=== PATIENT | female | born 1975 | race Caucasian/White ===

== ENCOUNTER 2016-10-23 22:14 | Emergency (ER) | payer BC ==
[2016-10-23] MEDS ORDERED: ASPIRIN 81 MG CHEWABLE TABLET PO ONE (22:55)
[2016-10-23 23:13] LABS: BASO % 0.2 % (0-6); EOS % 1.9 % (0-6); GRAN % 45.3 % (47-80); HEMATOCRIT 36.2 % (35.0-47.0); HEMOGLOBIN 11.8 gm/dl (11.6-16.0); LYMPH % 47.2 % (16-45); MEAN CELL VOLUME 99.5 fl (81-97); MEAN CORPUSCULAR HEMOGLOBIN 32.4 pg (27-33); MEAN CORPUSCULAR HGB CONC 32.6 g/dl (32-36); MEAN PLATELET VOLUME 9.5 fl (7.4-10.4); MONO % 5.4 % (0-9); PLATELET COUNT 270 K/uL (130-400); RED BLOOD COUNT 3.64 M/uL (3.80-5.40); RED CELL DISTRIBUTION WIDTH 12.9 % (11.5-14.5); URINE APPEARANCE CLEAR; URINE BILIRUBIN NEGATIVE (NEGATIVE); URINE BLOOD NEGATIVE (NEGATIVE); URINE COLOR YELLOW; URINE GLUCOSE (UA) NEGATIVE (NEGATIVE); URINE KETONE NEGATIVE (NEGATIVE); URINE LEUKOCYTE ESTERASE NEGATIVE (NEGATIVE); URINE NITRITE NEGATIVE (NEGATIVE); URINE PROTEIN NEGATIVE (NEGATIVE); URINE UROBILINOGEN 0.2 E.U./dL (0.20 - 1.00); WHITE BLOOD COUNT W/O DIFF 5.2 K/uL (4.2-12.2)
[2016-10-23 23:23] LABS: ANION GAP 5.1 (7-16); BLOOD UREA NITROGEN 11 mg/dL (7-17); CARBON DIOXIDE 27.9 mmol/L (22-30); CREATINE PHOSPHOKINASE 26 U/L (30-135); CREATININE 0.6 mg/dL (0.52-1.04); EST GLOMERULAR FILTRATION RATE > 60 ml/min; GLUCOSE,RANDOM 94 mg/dL (70-110)
[2016-10-23 23:35] LABS: CKMB < 0.2 ug/L (0-6); TROPONIN I < 0.012 ng/mL (0.00-0.034)
--- NOTE | 2016-10-24 00:11 | Emergency Department Record ---
History of Present Illness - General Chief complaint: ENT Stated complaint: CHEST PAIN/ALAS/ UTI Time Seen by Provider: 10/23/16 22:47 Source: Patient Mode of Arrival: Ambulatory Limitations: No limitations - History of Present Illness Initial comments: pt comes in c/o intermittant sharp cp for 2 days and a headache that is frontal w congestion. she also wants to be checked for a uti MD complaint: Other Onset/Timin -: Days(s) Severity: Mild Severity scale (1-10): 5 Consistency: Constant Improves with: None Worsens with: None Associated Symptoms: Cough, Rhinorrhea, Sore throat - Related Data Home Medications Medication Instructions Recorded Confirmed Last Taken Alprazolam [Xanax] 0.25 mg PO Q8H 10/23/16 10/23/16 Unknown Atenolol [Tenormin] 25 mg PO DAILY 10/23/16 10/23/16 Unknown Dicyclomine HCl 20 mg PO QID 10/23/16 10/23/16 Unknown Diphenhydramine HCl [Benadryl] 25 mg PO ASDIR PRN 10/23/16 10/23/16 Unknown Fluticasone Propionate [Flonase] 2 spray EACH NARES DAILY 10/23/16 10/23/16 Unknown Hydrocodone/Acetaminophen 1 tab PO Q4HR 10/23/16 10/23/16 Unknown [Hydrocodone/Acetaminophen 10mg/325mg] Hyoscyamine Sulfate [Levsin] 0.375 mg PO BID 10/23/16 10/23/16 Unknown Omeprazole 20 mg PO DAILY 10/23/16 10/23/16 Unknown Allergies Allergy/AdvReac Type Severity Reaction Status Date / Time tramadol Allergy HIVES Verified 10/23/16 22:22 fentanyl AdvReac VOMITING Verified 10/23/16 22:22 morphine AdvReac VOMITING Verified 10/23/16 22:22 Travel Screening - Travel/Exposure Within Last 30 Days Have you traveled within the last 30 days?: No - Travel/Exposure Within Last Year Have you traveled outside the [place] in the last year?: No - Additonal Travel Details Have you been exposed to anyone with a communicable illness?: No - Travel Symptoms Symptom Screening: None Review of Systems Reviewed: No additional complaints except as noted below Constitutional: Reports: As per HPI. Denies: Chills, Fever, Malaise, Night sweats, Weakness, Weight change Eyes: Reports: As per HPI. Denies: Eye discharge, Eye pain, Photophobia, Vision change ENT: Reports: As per HPI. Denies: Congestion, Dental pain, Ear pain, Epistaxis , Hearing loss, Throat pain Respiratory: Reports: As per HPI. Denies: Cough, Dyspnea, Hemoptysis, Stridor, Wheezes Cardiovascular: Reports: As per HPI. Denies: Arrhythmia, Chest pain, Dyspnea on exertion, Edema, Murmurs, Orthopnea, Palpitations, Paroxysmal nocturnal dyspnea, Rheumatic Fever, Syncope Endocrine: Reports: As per HPI. Denies: Fatigue, Heat or cold intolerance, Polydipsia, Polyuria Gastrointestinal: Reports: As per HPI. Denies: Abdominal pain, Constipation, Diarrhea, Hematemesis, Hematochezia, Melena, Nausea, Vomiting Genitourinary: Reports: As per HPI. Denies: Abnormal menses, Discharge, Dyspareunia, Dysuria, Frequency, Hematuria, Incontinence, Retention, Urgency Musculoskeletal: Reports: As per HPI. Denies: Arthralgia, Back pain, Gout, Joint swelling, Myalgia, Neck pain Skin: Reports: As per HPI. Denies: Bruising, Change in color, Change in hair/ nails, Lesions, Pruritus, Rash Neurological: Reports: As per HPI. Denies: Abnormal gait, Confusion, Headache, Numbness, Paresthesias, Seizure, Tingling, Tremors, Vertigo, Weakness Psychiatric: Reports: As per HPI. Denies: Anxiety, Auditory hallucinations, Depression, Homicidal thoughts, Suicidal thoughts, Visual hallucinations Hematological/Lymphatic: Reports: As per HPI. Denies: Anemia, Blood Clots, Easy bleeding, Easy bruising, Swollen glands Past Medical History - SOCIAL HISTORY Smoking Status: Never smoker Alcohol Use: Rare Drug Use: None - RESPIRATORY Hx Respiratory Disorders: Yes Hx Asthma: Yes - CARDIOVASCULAR Hx Cardio Disorders: Yes Comment:: tachycardia, pots - NEURO Hx Neuro Disorders: No - GI Hx GI Disorders: Yes Hx Irritable Bowel: Yes Comment:: barretts esophagus - ENDOCRINE Hx Endocrine Disorders: Yes Hx Thyroid Disease: Yes (goiter) - MUSCULOSKELETAL Hx Musculoskeletal Disorders: Yes Hx Back Injury: Yes (ruptured disks, djd, scolosis) - PSYCH Hx Psych Problems: Yes Hx Anxiety: Yes - HEMATOLOGY/ONCOLOGY Hx Hematology/Oncology Disorders: No Family Medical History Any Significant Family History?: No Physical Exam - General General Appearance: Alert, Oriented x3, Cooperative, Mild distress - Head Head exam: Normal inspection - Eye Eye exam: Normal appearance, PERRL, EOMI Pupils: Normal accommodation - ENT ENT exam: Normal exam, Mucous membranes moist, Normal external ear exam, Normal orophraynx Ear exam: Normal external inspection. negative: External canal tenderness Nasal Exam: Normal inspection, Sinus tenderness. negative: Discharge Mouth exam: Normal external inspection, Tongue normal Teeth exam: Normal inspection. negative: Dental caries Throat exam: Normal inspection. negative: Tonsillar erythema, Tonsillar exudate - Neck Neck exam: Normal inspection, Full ROM. negative: Tenderness - Respiratory Respiratory exam: Normal lung sounds bilaterally. negative: Respiratory distress - Cardiovascular Cardiovascular Exam: Regular rate, Normal rhythm, Normal heart sounds - GI/Abdominal GI/Abdominal exam: Soft, Normal bowel sounds. negative: Tenderness - Rectal Rectal exam: Deferred - exam: Deferred - Extremities Extremities exam: Normal inspection, Full ROM, Normal capillary refill. negative: Tenderness - Back Back exam: Reports: Normal inspection, Full ROM. Denies: Muscle spasm, Rash noted, Tenderness - Neurological Neurological exam: Alert, CN II-XII intact, Normal gait, Oriented X3 - Psychiatric Psychiatric exam: Normal affect, Normal mood - Skin Skin exam: Dry, Intact, Normal color, Warm Course Vital Signs 10/23/16 22:20 Temperature 98.2 F Pulse Rate [ 71 Pulse Ox Probe] Respiratory 16 Rate Blood Pressure 102/80 [Left Arm] Pulse Ox 99 Medical Decision Making - Management Options MDM Management: Additional Work-up Planned (e.g. ADM/Transfer/OP Study) - Data Complexity MDM Data: Labs Ordered and/or Reviewed, X-Ray Ordered and/or Reviewed, EKG Ordered and/or Reviewed - Lab Data Result diagrams: 10/23/16 23:06 10/23/16 23:06 Lab Results 10/23/16 10/23/16 10/23/16 Range/Units 23:06 23:06 23:06 WBC 5.2 (4.2-12.2) K/uL RBC 3.64 L (3.80-5.40) M/uL Hgb 11.8 (11.6-16.0) gm/dl Hct 36.2 (35.0-47.0) % MCV 99.5 H (81-97) fl MCH 32.4 (27-33) pg MCHC 32.6 (32-36) g/dl RDW 12.9 (11.5-14.5) % Plt Count 270 (130-400) K/uL MPV 9.5 (7.4-10.4) fl Gran % 45.3 L (47-80) % Lymphocytes % 47.2 H (16-45) % Monocytes % 5.4 (0-9) % Eosinophils % 1.9 (0-6) % Basophils % 0.2 (0-6) % D-Dimer 0.22 (0-0.59) mg/L FEU Sodium 139 (136-145) mmol/L Potassium 4.0 (3.5-5.1) mmol/L Chloride 106 (98-107) mmol/L Carbon Dioxide 27.9 (22-30) mmol/L Anion Gap 5.1 L (7-16) BUN 11 (7-17) mg/dL Creatinine 0.6 (0.52-1.04) mg/dL Estimated GFR > 60 ml/min Random Glucose 94 (70-110) mg/dL Calcium 8.8 (8.5-10.1) mg/dL Creatine Kinase 26 L (30-135) U/L CK-MB (CK-2) < 0.2 (0-6) ug/L Troponin I < 0.012 (0.00-0.034) ng/mL Urine Color Urine Appearance Urine pH (5.0-8.0) Ur Specific [place] (1.002-1.030) Urine Protein (NEGATIVE) Urine Glucose (UA) (NEGATIVE) Urine Ketones (NEGATIVE) Urine Blood (NEGATIVE) Urine Nitrite (NEGATIVE) Urine Bilirubin (NEGATIVE) Urine Urobilinogen (0.20 - 1.00) E.U./dL Ur Leukocyte Esterase (NEGATIVE) 10/23/16 Range/Units 23:06 WBC (4.2-12.2) K/uL RBC (3.80-5.40) M/uL Hgb (11.6-16.0) gm/dl Hct (35.0-47.0) % MCV (81-97) fl MCH (27-33) pg MCHC (32-36) g/dl RDW (11.5-14.5) % Plt Count (130-400) K/uL MPV (7.4-10.4) fl Gran % (47-80) % Lymphocytes % (16-45) % Monocytes % (0-9) % Eosinophils % (0-6) % Basophils % (0-6) % D-Dimer (0-0.59) mg/L FEU Sodium (136-145) mmol/L Potassium (3.5-5.1) mmol/L Chloride (98-107) mmol/L Carbon Dioxide (22-30) mmol/L Anion Gap (7-16) BUN (7-17) mg/dL Creatinine (0.52-1.04) mg/dL Estimated GFR ml/min Random Glucose (70-110) mg/dL Calcium (8.5-10.1) mg/dL Creatine Kinase (30-135) U/L CK-MB (CK-2) (0-6) ug/L Troponin I (0.00-0.034) ng/mL Urine Color Yellow Urine Appearance Clear Urine pH 5.5 (5.0-8.0) Ur Specific [place] 1.015 (1.002-1.030) Urine Protein Negative (NEGATIVE) Urine Glucose (UA) Negative (NEGATIVE) Urine Ketones Negative (NEGATIVE) Urine Blood Negative (NEGATIVE) Urine Nitrite Negative (NEGATIVE) Urine Bilirubin Negative (NEGATIVE) Urine Urobilinogen 0.2 (0.20 - 1.00) E.U./dL Ur Leukocyte Esterase Negative (NEGATIVE) - EKG Data -: EKG Interpreted by Me EKG: No Acute Changes - Radiology Data Radiology results: Report reviewed, Image reviewed Disposition Disposition: Discharge Clinical Impression: Headache Qualifiers: Headache type: unspecified Headache chronicity pattern: acute headache Intractability: not intractable Qualified Code(s): R51 - Headache Disposition: Home, Self-Care Return To Work/School Note Provided: Yes Condition: (1) Good Instructions: Acute Headache (ED), Chest Pain (ED) Additional Instructions: follow up with family doctor and with neurologist. return sooner if worse Forms: Patient Portal Access
--- NOTE | 2016-10-26 07:42 | RADIOLOGY REPORT ---
EXAM: CHEST, TWO VIEWS HISTORY: ACUTE CHEST PAIN. TECHNIQUE: Two views of the chest were obtained. Comparison: None. FINDINGS: The lungs are clear. The cardiomediastinal silhouette, diaphragm, and osseous structures are unremarkable for age. IMPRESSION: NEGATIVE CHEST EXAMINATION. JOB NUMBER: [id number] MTDD
--- NOTE | 2016-10-26 07:45 | CT SCAN REPORT ---
EXAM: HEAD CT WITHOUT CONTRAST HISTORY: SHARP HEADACHE NEAR THE VERTEX INTERMITTENT FOR ONE WEEK. TECHNIQUE: Contiguous axial images from the cerebral convexities to the foramen magnum were obtained without contrast. Comparison: None. FINDINGS: The brain volume is normal. No acute intracranial hemorrhage, mass effect, or midline shift. No CT evidence of acute infarct. The ventricles, basal cisterns, and sulci are within normal limits. The osseous structures, soft tissues, and paranasal sinuses are unremarkable. IMPRESSION: NORMAL HEAD CT. JOB NUMBER: [id number] [facility]
== END 2016-10-24 00:44 | disposition home or self-care (01) ==
LOC: ER 22:14
DX: R51 Headache (principal); R05 Cough; R07.89 Other chest pain
CPT/HCPCS: 70450; 71020; 80048; 81003; 82550; 82553; 84484; 85025; 85379; 93005; 93010; 99284

== ENCOUNTER 2016-11-14 22:07 | Emergency (ER) | payer BC ==
--- NOTE | 2016-11-14 22:33 | Emergency Department Record ---
History of Present Illness - General Chief Complaint: Abdominal Pain Stated Complaint: ABD PAIN,NAUSEA Time Seen by Provider: 11/14/16 22:27 Source: Patient Mode of Arrival: Ambulatory Limitations: No limitations - History of Present Illness Initial Comments: 41 yo female presents with abdominal pain. She has been having increased reflux , epigastric pain, RUQ pain for about 3 weeks or more. No blood in the stools. She has a known history of Hollingsworth's esophagus. Her last scope [place] about 2[place]3 [place] [facility]. She still has a gall bladder. She reports she has had "several" ultrasounds of her abdomen in the past that were all negative for gall stones. She has some pain at times with swallowing. She gets a harsh acid taste in her mouth. She has chronic back pain and takes Motrin. MD Complaint: Abdominal pain -: Week(s) (3) Location: Epigastric, RUQ Radiation: Epigastric, RUQ Migration to: Epigastric, RUQ Severity: Moderate Quality: Burning Consistency: Intermittent Worsens With: Other (food) Treatments Prior to Arrival: NSAIDs - Related Data Home Medications Medication Instructions Recorded Confirmed Last Taken Alprazolam [Xanax] 0.25 mg PO Q8H PRN 10/23/16 11/14/16 Unknown Atenolol [Tenormin] 25 mg PO DAILY 10/23/16 11/14/16 Unknown Dicyclomine HCl 20 mg PO QID 10/23/16 11/14/16 Unknown Diphenhydramine HCl [Benadryl] 25 mg PO ASDIR PRN 10/23/16 11/14/16 Unknown Fluticasone Propionate [Flonase] 2 spray EACH NARES DAILY 10/23/16 11/14/16 Unknown Hyoscyamine Sulfate [Levsin] 0.375 mg PO BID 10/23/16 11/14/16 Unknown Omeprazole 20 mg PO DAILY 10/23/16 11/14/16 Unknown Previous Rx's Medication Instructions Recorded Sucralfate [Carafate] 1 g PO QID #200 [facility] [place] 11/14/16 Allergies Allergy/AdvReac Type Severity Reaction Status Date / Time tramadol Allergy HIVES Verified 10/23/16 22:22 fentanyl AdvReac VOMITING Verified 10/23/16 22:22 gabapentin AdvReac RAPID Verified 11/14/16 22:17 HEART RATE morphine AdvReac VOMITING Verified 10/23/16 22:22 pregabalin [From Lyrica] AdvReac seizure Verified 11/14/16 22:17 Review of Systems Constitutional: Denies: Chills, Fever, Malaise, Weakness Eyes: Denies: Eye discharge, Eye pain, Photophobia, Vision change ENT: Denies: Congestion, Throat pain Respiratory: Denies: Cough, Dyspnea, Hemoptysis, Stridor, Wheezes Cardiovascular: Denies: Chest pain, Palpitations, Syncope Endocrine: Denies: Fatigue Gastrointestinal: Reports: As per HPI, Abdominal pain. Denies: Diarrhea, Nausea , Vomiting Genitourinary: Denies: Dysuria, Urgency Musculoskeletal: Denies: Arthralgia, Back pain, Myalgia, Neck pain Skin: Denies: Bruising, Change in color Neurological: Denies: Confusion, Headache Psychiatric: Denies: Anxiety Hematological/Lymphatic: Denies: Blood Clots, Easy bleeding, Easy bruising, Swollen glands Past Medical History - SOCIAL HISTORY Smoking Status: Never smoker Drug Use: None - RESPIRATORY Hx Respiratory Disorders: Yes Hx Asthma: Yes - CARDIOVASCULAR Hx Cardio Disorders: Yes Comment:: tachycardia, pots - NEURO Hx Neuro Disorders: No - GI Hx GI Disorders: Yes Hx Irritable Bowel: Yes Comment:: barretts esophagus - ENDOCRINE Hx Endocrine Disorders: Yes Hx Thyroid Disease: Yes (goiter) - MUSCULOSKELETAL Hx Musculoskeletal Disorders: Yes Hx Back Injury: Yes (ruptured disks, djd, scolosis) - PSYCH Hx Psych Problems: Yes Hx Anxiety: Yes - HEMATOLOGY/ONCOLOGY Hx Hematology/Oncology Disorders: No Physical Exam - General General Appearance: Alert, Oriented x3, Cooperative, No acute distress Limitations: No limitations - Head Head exam: Normal inspection - Eye Eye exam: Normal appearance. negative: Conjunctival injection, Scleral icterus - ENT ENT exam: Normal exam, Mucous membranes moist Ear exam: Normal external inspection Nasal Exam: Normal inspection Mouth exam: Normal external inspection Teeth exam: Normal inspection Throat exam: Normal inspection - Neck Neck exam: Normal inspection, Full ROM. negative: Tenderness - Respiratory Respiratory exam: Normal lung sounds bilaterally. negative: Respiratory distress - Cardiovascular Cardiovascular Exam: Regular rate, Normal rhythm, Normal heart sounds - GI/Abdominal GI/Abdominal exam: Soft, Tenderness (mild epigatric and RUQ tenderness, very soft abdomen). negative: Distended, Guarding, Mass, Rebound, Rigid - Rectal Rectal exam: Deferred - exam: Deferred - Extremities Extremities exam: Normal inspection. negative: Pedal edema - Back Back exam: Reports: Normal inspection, Full ROM. Denies: CVA tenderness (R), CVA tenderness (L), Muscle spasm, Rash noted, Tenderness - Neurological Neurological exam: Alert, Normal gait, Oriented X3 - Psychiatric Psychiatric exam: Normal affect, Normal mood. negative: Anxious - Skin Skin exam: Dry, Intact, Normal color, Warm Course Vital Signs 11/14/16 22:19 Temperature 97.9 F Pulse Rate [ 78 Pulse Ox Probe] Respiratory 20 Rate Blood Pressure 141/89 [Left Arm] Pulse Ox 98 - Reevaluation(s) Reevaluation #1: Abdomen is very soft I discussed labs at this time She now lives in [place] A referral for a PC in [facility] will be provided MAPS reviewed No pattern of abuse. She has been on [place] and Xanax through only one provider. 11/14/16 22:40 Reevaluation #2: The labs were negative for any acute changes She will be given referral numbers for local providers 11/14/16 23:14 Medical Decision Making - Lab Data Result diagrams: 11/14/16 22:45 11/14/16 22:45 Disposition Disposition: Discharge Clinical Impression: Epigastric pain Disposition: Home, Self-Care Condition: (1) Good Instructions: Epigastric Pain (ED), Chronic Pain (ED) Additional Instructions: Call the number provided for a new family doctor in [place] Minimize your Motrin use as this can lead to pain similar to yours and cause gastritis or ulcers Prescriptions: Sucralfate [Carafate] 1 g PO QID #200 [facility] [place] Referrals: SYLVIA MONGE [DOCTOR OF OSTEOPATH] - GLORIA MORRIS M.D. [MEDICAL DOCTOR] - GABINO REDD [MEDICAL DOCTOR] - Forms: Patient Portal Access Time of Disposition: 23:15
[2016-11-14] MEDS ORDERED: MAGNESIUM HYDROXIDE/AL HYDROX 30 ML, LIDOCAINE VISC 2% 200 MG PO ONE ×2 (22:34)
[2016-11-14 22:54] LABS: BASO % 0.3 % (0-6); EOS % 0.7 % (0-6); GRAN % 65.4 % (47-80); HEMATOCRIT 36.5 % (35.0-47.0); HEMOGLOBIN 12.1 gm/dl (11.6-16.0); LYMPH % 29.6 % (16-45); MEAN CELL VOLUME 96.6 fl (81-97); MEAN CORPUSCULAR HGB CONC 33.2 g/dl (32-36); MEAN PLATELET VOLUME 10.1 fl (7.4-10.4); PLATELET COUNT 297 K/uL (130-400); RED BLOOD COUNT 3.78 M/uL (3.80-5.40); RED CELL DISTRIBUTION WIDTH 12.4 % (11.5-14.5); URINE APPEARANCE CLEAR; URINE BILIRUBIN NEGATIVE (NEGATIVE); URINE BLOOD TRACE-I (NEGATIVE); URINE COLOR YELLOW; URINE GLUCOSE (UA) NEGATIVE (NEGATIVE); URINE KETONE NEGATIVE (NEGATIVE); URINE LEUKOCYTE ESTERASE NEGATIVE (NEGATIVE); URINE NITRITE NEGATIVE (NEGATIVE); URINE PROTEIN NEGATIVE (NEGATIVE); URINE UROBILINOGEN 0.2 E.U./dL (0.20 - 1.00); WHITE BLOOD COUNT W/O DIFF 6.8 K/uL (4.2-12.2)
[2016-11-14 22:55] LABS: URINE EPITHELIAL CELLS 0 - 2 (FEW); URINE RBC 0 - 2 (NONE SEEN); URINE WBC 0 - 2 (0-2/hpf)
[2016-11-14 22:56] LABS: URINE BACTERIA NONE SEEN
[2016-11-14 23:05] LABS: ALB/GLOB RATIO 1.8 (1.1-1.8); ALBUMIN 4.3 gm/dL (3.5-5.0); ALKALINE PHOSPHATASE 52 U/L (38-126); ALT/SGPT 26 U/L (9-52); ANION GAP 8.3 (7-16); AST/SGOT 16 U/L (14-36); BILIRUBIN,TOTAL 0.23 mg/dL (0.2-1.3); BLOOD UREA NITROGEN 8 mg/dL (7-17); CARBON DIOXIDE 26.7 mmol/L (22-30); CREATININE 0.5 mg/dL (0.52-1.04); EST GLOMERULAR FILTRATION RATE > 60 ml/min; GLUCOSE,RANDOM 89 mg/dL (70-110); LIPASE 164 U/L (23-300); TOTAL PROTEIN 6.7 gm/dL (6.3-8.2)
== END 2016-11-14 23:37 | disposition home or self-care (01) ==
LOC: ER 22:07
DX: R10.13 Epigastric pain (principal); R11.0 Nausea; M54.9 Dorsalgia, unspecified; G89.29 Other chronic pain; D64.9 Anemia, unspecified
CPT/HCPCS: 80053; 81001; 81025; 82728; 83550; 83690; 85025; 99283

== ENCOUNTER 2017-01-09 20:12 | Emergency (ER) | payer BC ==
[2017-01-09] MEDS ORDERED: MAGNESIUM HYDROXIDE/AL HYDROX 30 ML, LIDOCAINE VISC 2% 200 MG PO ONE ×2 (20:18)
--- NOTE | 2017-01-09 20:20 | Emergency Department Record ---
History of Present Illness - General Chief Complaint: Chest Pain Stated Complaint: CHEST PAIN Time Seen by Provider: 01/09/17 20:13 Source: Patient, Family Mode of Arrival: Ambulatory Limitations: No limitations - History of Present Illness Initial Comments: 41 yo female presents with mid lower sternal pain and epigastric pain for the last 3-4 days. The pain comes and goes. She has some nausea associated with some burping and belching. She does not have any history of CAD. Her father has had an WI. No fevers or chills. She has had some mild cough. No vomiting or diarrhea. The patient has been dealing with upper abdominal pain for many months. She states she is due for an EGD. Her PCP is in [facility]. She was unable to establish a PCP in [place]. MD Complaint: Chest pain -: Days(s) Onset: During rest Pain Location: Substernal, Epigastric Severity: Moderate Quality: Aching, Heaviness, Sharp Consistency: Intermittent Improves With: Nothing Worsens With: Palpation Anginal Symptoms: Dyspnea Other Symptoms: Burping - Related Data Home Medications Medication Instructions Recorded Confirmed Last Taken Alprazolam [Xanax] 0.25 mg PO Q8H PRN 10/23/16 01/09/17 Unknown Atenolol [Tenormin] 25 mg PO DAILY 10/23/16 01/09/17 Unknown Dicyclomine HCl 20 mg PO QID 10/23/16 01/09/17 Unknown Diphenhydramine HCl [Benadryl] 25 mg PO ASDIR PRN 10/23/16 01/09/17 Unknown Fluticasone Propionate [Flonase] 2 spray EACH NARES DAILY 10/23/16 01/09/17 Unknown Hyoscyamine Sulfate [Levsin] 0.375 mg PO BID 10/23/16 01/09/17 Unknown Hydrocodone/Acetaminophen 1 tab PO Q5H PRN 01/09/17 01/09/17 Unknown [Hydrocodone/Acetaminophen 10mg/325mg] Previous Rx's Medication Instructions Recorded Sucralfate [Carafate] 1 g PO QID #200 [facility] [place] 11/14/16 Allergies Allergy/AdvReac Type Severity Reaction Status Date / Time tramadol Allergy HIVES Verified 10/23/16 22:22 fentanyl AdvReac VOMITING Verified 10/23/16 22:22 gabapentin AdvReac RAPID Verified 11/14/16 22:17 HEART RATE morphine AdvReac VOMITING Verified 10/23/16 22:22 pregabalin [From Lyrica] AdvReac seizure Verified 11/14/16 22:17 Review of Systems Constitutional: Denies: Chills, Fever, Malaise, Weakness Eyes: Denies: Eye discharge, Eye pain, Photophobia, Vision change ENT: Denies: Congestion, Throat pain Respiratory: Reports: Cough, Dyspnea. Denies: Hemoptysis, Stridor, Wheezes Cardiovascular: Reports: Chest pain. Denies: Dyspnea on exertion, Palpitations , Syncope Endocrine: Denies: Fatigue, Polydipsia, Polyuria Gastrointestinal: Reports: Nausea. Denies: Abdominal pain, Constipation, Diarrhea, Vomiting Genitourinary: Denies: Dysuria, Urgency Musculoskeletal: Denies: Arthralgia, Back pain, Joint swelling, Myalgia, Neck pain Skin: Denies: Bruising, Change in color, Rash Neurological: Denies: Headache, Numbness, Weakness Psychiatric: Denies: Anxiety Hematological/Lymphatic: Denies: Blood Clots, Easy bleeding, Easy bruising, Swollen glands Past Medical History - SOCIAL HISTORY Smoking Status: Never smoker Drug Use: None - RESPIRATORY Hx Respiratory Disorders: Yes Hx Asthma: Yes - CARDIOVASCULAR Hx Cardio Disorders: Yes Comment:: tachycardia, pots - NEURO Hx Neuro Disorders: No - GI Hx GI Disorders: Yes Hx Irritable Bowel: Yes Comment:: barretts esophagus - ENDOCRINE Hx Endocrine Disorders: Yes Hx Thyroid Disease: Yes (goiter) - MUSCULOSKELETAL Hx Musculoskeletal Disorders: Yes Hx Back Injury: Yes (ruptured disks, djd, scolosis) - PSYCH Hx Psych Problems: Yes Hx Anxiety: Yes - HEMATOLOGY/ONCOLOGY Hx Hematology/Oncology Disorders: No Physical Exam - General General Appearance: Alert, Oriented x3, Cooperative, No acute distress Limitations: No limitations - Head Head exam: Atraumatic, Normocephalic, Normal inspection - Eye Eye exam: Normal appearance, PERRL. negative: Conjunctival injection, Periorbital swelling, Scleral icterus - ENT ENT exam: Normal exam, Mucous membranes moist Ear exam: Normal external inspection Nasal Exam: Normal inspection Mouth exam: Normal external inspection Teeth exam: Normal inspection Throat exam: Normal inspection - Neck Neck exam: Normal inspection, Full ROM. negative: Tenderness - Respiratory Respiratory exam: Normal lung sounds bilaterally, Chest wall tenderness. negative: Accessory muscle use, Decreased breath sounds, Prolonged expiratory, Respiratory distress, Rhonchi, Stridor, Wheezes - Cardiovascular Cardiovascular Exam: Regular rate, Normal rhythm, Normal heart sounds Peripheral Pulses: 2+: Radial (R), Radial (L) - GI/Abdominal GI/Abdominal exam: Soft, Tenderness (epigastric). negative: Distended - Rectal Rectal exam: Deferred - exam: Deferred - Extremities Extremities exam: Normal inspection, Full ROM, Normal capillary refill. negative: Pedal edema, Tenderness - Back Back exam: Reports: Normal inspection, Full ROM. Denies: CVA tenderness (R), CVA tenderness (L), Muscle spasm, Rash noted, Tenderness - Neurological Neurological exam: Alert, Normal gait, Oriented X3, Reflexes normal - Psychiatric Psychiatric exam: Normal affect, Normal mood - Skin Skin exam: Dry, Intact, Normal color, Warm Course - Reevaluation(s) Reevaluation #1: EKG 2010 Sinus tachycardia, rate 121, intervals normal, axis normal, ST non specific lateral ST changes but with some movement artifact. 01/09/17 20:20 Reevaluation #2: The labs were reviewed Hgb 11.4 with priors of 12.1 and 11.8 K was 2.9 No acute changes on the CMP or lipase 01/09/17 20:50 No acute changes on the Troponin 01/09/17 20:59 Reevaluation #3: The prelim CXR was reviewed by me. No acute findings seen. HR 90 will repeat EKG given the improved rate. 01/09/17 21:49 Reevaluation #4: EKG#2 2153 NSR, rate 98, intervals normal, axis normal, ST normal, still mild artifact. 01/09/17 22:19 Reevaluation #5: I discussed the results with the patient. I recommend admission for serial enzymes and cardiology consult tomorrow. She is not will to stay overnight. She will stay for repeat enzymes. I explained that this may not rule out an WI. I explained signing out AMA due to risks of leaving without full work up. She understands and will sign out AMA. She has a GI referral through her doctor. I will refer her to cardiology as well at [facility] 01/09/17 22:26 The repeat troponin is negative DC with referral 01/10/17 00:28 Medical Decision Making - Lab Data Result diagrams: 01/09/17 20:20 01/09/17 20:20 Disposition Disposition: Discharge Clinical Impression: Epigastric pain, Chest pain, Left against medical advice Disposition: Against Medical Advice Condition: (1) Good Instructions: Chest Pain (ED), Against Medical Advice (ED) Additional Instructions: Return any time to complete the evaluation for the chest pain You are being referred to cardiology for your chest pain Forms: Patient Portal Access Time of Disposition: 00:28
[2017-01-09] MEDS ORDERED: PANTOPRAZOLE SODIUM IV 40 MG VIAL IVP ONE (20:27)
[2017-01-09] MEDS ORDERED: HYDROMORPHONE HCL 1 MG/ML CPJ IVP ONE ×2 (20:28→20:30)
[2017-01-09 20:35] LABS: BASO % 0.2 % (0-6); GRAN % 60.8 % (47-80); HEMATOCRIT 34.4 % (35.0-47.0); HEMOGLOBIN 11.4 gm/dl (11.6-16.0); LYMPH % 33.3 % (16-45); MEAN CELL VOLUME 96.4 fl (81-97); MEAN CORPUSCULAR HEMOGLOBIN 31.9 pg (27-33); MEAN CORPUSCULAR HGB CONC 33.1 g/dl (32-36); MEAN PLATELET VOLUME 10.2 fl (7.4-10.4); MONO % 3.7 % (0-9); PLATELET COUNT 283 K/uL (130-400); RED BLOOD COUNT 3.57 M/uL (3.80-5.40); RED CELL DISTRIBUTION WIDTH 11.9 % (11.5-14.5); WHITE BLOOD COUNT W/O DIFF 9.2 K/uL (4.2-12.2)
[2017-01-09 20:46] LABS: ALB/GLOB RATIO 1.8 (1.1-1.8); ALBUMIN 3.8 gm/dL (3.5-5.0); ALKALINE PHOSPHATASE 48 U/L (38-126); ALT/SGPT 28 U/L (9-52); ANION GAP 8.8 (7-16); AST/SGOT 17 U/L (14-36); BILIRUBIN,TOTAL 0.37 mg/dL (0.2-1.3); BLOOD UREA NITROGEN 7 mg/dL (7-17); CARBON DIOXIDE 24.2 mmol/L (22-30); CREATINE PHOSPHOKINASE 40 U/L (30-135); CREATININE 0.6 mg/dL (0.52-1.04); EST GLOMERULAR FILTRATION RATE > 60 ml/min; GLUCOSE,RANDOM 136 mg/dL (70-110); TOTAL PROTEIN 5.9 gm/dL (6.3-8.2)
[2017-01-09] MEDS ORDERED: SOD CHLOR 0.9% WITH KCL 40MEQ 40 MEQ/1,000 ML IV.SOLN IV ONE (20:49)
[2017-01-09 20:57] LABS: CKMB 0.4 ug/L (0-6)
[2017-01-09 20:58] LABS: INR 0.94; PARTIAL THROMBOPLASTIN TIME 23.2 SECONDS (24.5-39.1); PROTHROMBIN TIME (PATIENT) 10.6 SECONDS (9.5-12.1); TROPONIN I < 0.012 ng/mL (0.00-0.034)
[2017-01-09] MEDS ORDERED: ONDANSETRON HCL IV 4 MG/2 ML VIAL IVP ONE (21:22)
--- NOTE | 2017-01-11 13:12 | RADIOLOGY REPORT ---
EXAM: CHEST, TWO VIEWS HISTORY: CHEST PAIN ALL DAY, GRADUALLY GETTING WORSE AND IS SUBSTERNAL AND EPIGASTRIC IN LOCATION. TECHNIQUE: PA and lateral views of the chest were obtained. Comparison: Two view chest 10/23/16. FINDINGS: The heart size is normal. The lungs appear expanded with no acute infiltrate seen. No pleural effusion or pneumothorax evident. Mild thoracic curve to the left also present previously. IMPRESSION: MILD THORACIC CURVE TO THE LEFT. NO ACUTE INFILTRATE IDENTIFIED. JOB NUMBER: [id number] MTDD
== END 2017-01-10 01:37 | disposition left against medical advice (07) ==
LOC: ER 20:12
DX: R10.13 Epigastric pain (principal); R07.89 Other chest pain; I25.10 Atherosclerotic heart disease of native coronary artery without angina pectoris; E04.9 Nontoxic goiter, unspecified
CPT/HCPCS: 71020; 80053; 82550; 82553; 83690; 84484; 85025; 85610; 85730; 93005; 93010; 93041; 96374; 96375; 99284; C9113; J1170; J2405

== ENCOUNTER 2017-01-31 08:57 | Emergency (ER) | payer BC ==
--- NOTE | 2017-01-31 09:30 | Emergency Department Record ---
History of Present Illness - General Chief Complaint: Abdominal Pain Stated Complaint: ABDOMINAL PAIN Time Seen by Provider: 01/31/17 09:18 Mode of Arrival: Ambulatory - History of Present Illness Initial Comments: epigastric abdominal pain and vomiting times one 2 days ago. No diarrhea .Last night ate fettaccina but today it feels like it is just setting there. Drank water today and she vomited times one and last night up and down with the abdominal pain and she states no pain meds to take at home. Dr. Jones is in [place]. Last time she has seen her was one month ago. PSH Hysterectomy 2008 because of endometriosis. History of pedroza"s esophagitis and diagnosised in 2014. last BM 2 days ago and mucous present and no blood in stool. Onset/Timin -: Days(s) Location: Epigastric Radiation: None Migration to: No migration Severity: Moderate Quality: Burning Consistency: Constant Improves With: Nothing Worsens With: Nothing Associated Symptoms: Chills, Nausea, Vomiting - Related Data Home Medications Medication Instructions Recorded Confirmed Last Taken Alprazolam [Xanax] 0.25 mg PO Q8H PRN 10/23/16 01/31/17 Unknown Dicyclomine HCl 20 mg PO QID 10/23/16 01/31/17 01/31/17 Diphenhydramine HCl [Benadryl] 25 mg PO ASDIR PRN 10/23/16 01/31/17 01/30/17 Fluticasone Propionate [Flonase] 2 spray EACH NARES DAILY 10/23/16 01/31/17 Unknown Hyoscyamine Sulfate [Levsin] 0.375 mg PO BID 10/23/16 01/31/17 01/31/17 Hydrocodone/Acetaminophen 1 tab PO Q5H PRN 01/09/17 01/31/17 Unknown [Hydrocodone/Acetaminophen 10mg/325mg] Previous Rx's Medication Instructions Recorded Pantoprazole Sodium [Protonix] 40 mg PO DAILY #30 tablet. 01/31/17 Allergies Allergy/AdvReac Type Severity Reaction Status Date / Time tramadol Allergy HIVES Verified 10/23/16 22:22 fentanyl AdvReac VOMITING Verified 10/23/16 22:22 gabapentin AdvReac RAPID Verified 11/14/16 22:17 HEART RATE morphine AdvReac VOMITING Verified 10/23/16 22:22 pregabalin [From Lyrica] AdvReac seizure Verified 11/14/16 22:17 Travel Screening - Travel/Exposure Within Last 30 Days Have you traveled within the last 30 days?: No - Travel/Exposure Within Last Year Have you traveled outside the [place] in the last year?: No - Additonal Travel Details Have you been exposed to anyone with a communicable illness?: No - Travel Symptoms Symptom Screening: None Review of Systems Reviewed: No additional complaints except as noted below Constitutional: Reports: As per HPI. Denies: Chills, Fever, Malaise, Night sweats, Weakness, Weight change Eyes: Reports: As per HPI. Denies: Eye discharge, Eye pain, Photophobia, Vision change ENT: Reports: As per HPI. Denies: Congestion, Dental pain, Ear pain, Epistaxis , Hearing loss, Throat pain Respiratory: Reports: As per HPI. Denies: Cough, Dyspnea, Hemoptysis, Stridor, Wheezes Cardiovascular: Reports: As per HPI. Denies: Arrhythmia, Chest pain, Dyspnea on exertion, Edema, Murmurs, Orthopnea, Palpitations, Paroxysmal nocturnal dyspnea, Rheumatic Fever, Syncope Endocrine: Reports: As per HPI. Denies: Fatigue, Heat or cold intolerance, Polydipsia, Polyuria Gastrointestinal: Reports: As per HPI, Abdominal pain, Nausea, Vomiting. Denies : Constipation, Diarrhea, Hematemesis, Hematochezia, Melena Genitourinary: Reports: As per HPI. Denies: Abnormal menses, Discharge, Dyspareunia, Dysuria, Frequency, Hematuria, Incontinence, Retention, Urgency Musculoskeletal: Reports: As per HPI. Denies: Arthralgia, Back pain, Gout, Joint swelling, Myalgia, Neck pain Skin: Reports: As per HPI. Denies: Bruising, Change in color, Change in hair/ nails, Lesions, Pruritus, Rash Neurological: Reports: As per HPI. Denies: Abnormal gait, Confusion, Headache, Numbness, Paresthesias, Seizure, Tingling, Tremors, Vertigo, Weakness Psychiatric: Reports: As per HPI. Denies: Anxiety, Auditory hallucinations, Depression, Homicidal thoughts, Suicidal thoughts, Visual hallucinations Hematological/Lymphatic: Reports: As per HPI. Denies: Anemia, Blood Clots, Easy bleeding, Easy bruising, Swollen glands Past Medical History - SOCIAL HISTORY Smoking Status: Never smoker Alcohol Use: None Drug Use: None - RESPIRATORY Hx Respiratory Disorders: Yes Hx Asthma: Yes - CARDIOVASCULAR Hx Cardio Disorders: Yes Comment:: tachycardia, pots - NEURO Hx Neuro Disorders: No - GI Hx GI Disorders: Yes Hx Irritable Bowel: Yes Comment:: barretts esophagus - Hx Genitourinary Disorders: No - ENDOCRINE Hx Endocrine Disorders: Yes Hx Thyroid Disease: Yes (goiter) - MUSCULOSKELETAL Hx Musculoskeletal Disorders: Yes Hx Back Injury: Yes (ruptured disks, djd, scolosis) - PSYCH Hx Psych Problems: Yes Hx Anxiety: Yes - HEMATOLOGY/ONCOLOGY Hx Hematology/Oncology Disorders: No Family Medical History Any Significant Family History?: Yes Hx Heart Disease: Father Physical Exam - General General Appearance: Alert, Oriented x3, Cooperative, No acute distress - Head Head exam: Normal inspection - Eye Eye exam: Normal appearance, PERRL Pupils: Normal accommodation - ENT ENT exam: Normal exam, Mucous membranes moist, Normal external ear exam, Normal orophraynx, TM's normal bilaterally Ear exam: Normal external inspection. negative: External canal tenderness Nasal Exam: Normal inspection. negative: Discharge, Sinus tenderness Mouth exam: Normal external inspection, Tongue normal Teeth exam: Normal inspection. negative: Dental caries Throat exam: Normal inspection. negative: Tonsillar erythema, Tonsillar exudate - Neck Neck exam: Normal inspection, Full ROM. negative: Tenderness - Respiratory Respiratory exam: Normal lung sounds bilaterally. negative: Respiratory distress - Cardiovascular Cardiovascular Exam: Regular rate, Normal rhythm, Normal heart sounds - GI/Abdominal GI/Abdominal exam: Soft, Normal bowel sounds, Tenderness (epigastric). negative : Bruit, Distended, Guarding, Hernia, Mass, Pulsatile mass, Rebound, Rigid - Rectal Rectal exam: Deferred - exam: Deferred - Extremities Extremities exam: Normal inspection, Full ROM, Normal capillary refill. negative: Tenderness - Back Back exam: Reports: Normal inspection, Full ROM. Denies: Muscle spasm, Rash noted, Tenderness - Neurological Neurological exam: Alert, Normal gait, Oriented X3, Reflexes normal - Psychiatric Psychiatric exam: Normal affect, Normal mood - Skin Skin exam: Dry, Intact, Normal color, Warm Course Vital Signs 01/31/17 09:00 Temperature 98.9 F Pulse Rate 88 Respiratory 20 Rate Blood Pressure 120/86 Pulse Ox 97 - Reevaluation(s) Reevaluation #1: asked patient about her norco use and now she tells me she takes norco regularly and last dose yesterday and she hasn't had xanax in awhile and she states she is due today to get her narcotics for her ruptured disks in her low back area L5. She states the GI cocktail did help. 01/31/17 10:58 Reevaluation #2: patient is feeling better 01/31/17 11:07 Medical Decision Making - Lab Data Result diagrams: 01/31/17 09:09 01/31/17 09:09 Disposition Clinical Impression: Epigastric pain Gastritis Qualifiers: Gastritis type: unspecified gastritis Chronicity: acute Gastritis bleeding: without bleeding Qualified Code(s): K29.00 - Acute gastritis without bleeding Disposition: Home, Self-Care Condition: (1) Good Instructions: Abdominal Pain (ED), Gastritis (ED) Additional Instructions: follow up with family DrJoyce in 2-7 days start protonix, stop omeprazole USE TUMS(3) AFTER MEAL AND BED TIME. continue brand diet Prescriptions: Pantoprazole Sodium [Protonix] 40 mg PO DAILY #30 tablet.dr Forms: Patient Portal Access Time of Disposition: 11:06
[2017-01-31] MEDS ORDERED: MAGNESIUM HYDROXIDE/AL HYDROX 30 ML, LIDOCAINE VISC 2% 200 MG PO ONE ×2 (09:33)
[2017-01-31] MEDS ORDERED: 0.9 % SODIUM CHLORIDE 1,000 ML BAG IV ONE (09:33)
[2017-01-31] MEDS ORDERED: ONDANSETRON HCL IV 4 MG/2 ML VIAL IV ONE (09:33)
[2017-01-31 10:02] LABS: BASO % 0.3 % (0-6); EOS % 0.6 % (0-6); GRAN % 69.3 % (47-80); HEMATOCRIT 35.8 % (35.0-47.0); HEMOGLOBIN 12.1 gm/dl (11.6-16.0); LYMPH % 24.6 % (16-45); MEAN CELL VOLUME 94.7 fl (81-97); MEAN CORPUSCULAR HGB CONC 33.8 g/dl (32-36); MEAN PLATELET VOLUME 10.5 fl (7.4-10.4); MONO % 5.2 % (0-9); PLATELET COUNT 274 K/uL (130-400); RED BLOOD COUNT 3.78 M/uL (3.80-5.40); RED CELL DISTRIBUTION WIDTH 11.8 % (11.5-14.5); WHITE BLOOD COUNT W/O DIFF 6.4 K/uL (4.2-12.2)
[2017-01-31 10:10] LABS: ALBUMIN 4.3 gm/dL (3.5-5.0); ALKALINE PHOSPHATASE 51 U/L (38-126); ALT/SGPT 26 U/L (9-52); ANION GAP 6.3 (7-16); AST/SGOT 15 U/L (14-36); BILIRUBIN,TOTAL 0.54 mg/dL (0.2-1.3); BLOOD UREA NITROGEN 7 mg/dL (7-17); CARBON DIOXIDE 26.7 mmol/L (22-30); CREATININE 0.5 mg/dL (0.52-1.04); EST GLOMERULAR FILTRATION RATE > 60 ml/min; GLUCOSE,RANDOM 93 mg/dL (70-110); LIPASE 68 U/L (23-300); TOTAL PROTEIN 6.7 gm/dL (6.3-8.2)
[2017-01-31 10:40] LABS: URINE APPEARANCE CLEAR; URINE BILIRUBIN NEGATIVE (NEGATIVE); URINE BLOOD NEGATIVE (NEGATIVE); URINE COLOR YELLOW; URINE GLUCOSE (UA) NEGATIVE (NEGATIVE); URINE KETONE NEGATIVE (NEGATIVE); URINE LEUKOCYTE ESTERASE NEGATIVE (NEGATIVE); URINE NITRITE NEGATIVE (NEGATIVE); URINE PROTEIN NEGATIVE (NEGATIVE); URINE UROBILINOGEN 0.2 E.U./dL (0.20 - 1.00)
[2017-01-31 10:51] LABS: AMPHETAMINE SCREEN URINE NOT DETECTED; BARBITURATE SCREEN URINE NOT DETECTED; BENZODIAZEPINE SCREEN URINE NOT DETECTED; COCAINE SCREEN URINE NOT DETECTED; METHADONE SCREEN URINE NOT DETECTED; METHAMPHETAMINE SCREEN NOT DETECTED; OPIATE SCREEN URINE DETECTED; OXYCODONE SCREEN URINE NOT DETECTED; PHENCYCLIDINE SCREEN URINE NOT DETECTED; PROPOXYPHENE SCREEN URINE NOT DETECTED; THC SCREEN URINE NOT DETECTED; TRICYCLIC ANTIDEPRESSANT SCRN NOT DETECTED
== END 2017-01-31 11:40 | disposition home or self-care (01) ==
LOC: ER 08:57
DX: K29.00 Acute gastritis without bleeding (principal); R11.2 Nausea with vomiting, unspecified; R10.13 Epigastric pain
CPT/HCPCS: 99284 ×2; 96374; 96361; 83690; 85025; 80076; 80048; 81003; 80305; J2405; J7030